=== PATIENT | female | born 1960 | race Caucasian/White ===

== ENCOUNTER 2016-12-26 07:10 | Observation (INO) | payer OTHER ==
[2016-12-26] MEDS ORDERED: NS 1,000 ML IV ONE (07:12)
[2016-12-26] MEDS ORDERED: MIDAZOLAM 2 MG/2 ML VIAL IVP ONE (07:12)
--- NOTE | 2016-12-26 07:35 | CPEKG ---
Heart Rate: 62 RR Interval: 968 P-R Interval: 160 QRSD Interval: 84 QT Interval: 408 QTC Interval: 415 P Colon: 38 QRS Colon: -3 T Wave Colon: 11 EKG Severity - NORMAL ECG - EKG Impression: SINUS RHYTHM Electronically Signed By: Ernesto Pittman 26-Dec-2016 08:40:27
[2016-12-26 07:56] LABS: ADD DIFF? NO; ADD MORPH? NO; ADD SCAN? NO; ATYPICAL LYMPHOCYTE FLAG 10 (0-99); FRAGMENT RBC FLAG 0 (0-99); HEMATOCRIT 44.9 % (38.0-47.0); LEFT SHIFT FLG 0 (0-99); LIPEMIA HEMOLYSIS FLAG 80 (0-99); MEAN CELL HEMOGLOBIN 29.6 pg (27.9-34.1); MEAN CELL HEMOGLOBIN CONCENTR. 33.4 g/dL (32.4-36.7); MEAN CELL VOLUME 88.7 fL (81.5-99.8); MEAN PLATELET VOLUME 10.8 fL (8.7-11.7); PLATELET CLUMPS FLAG 20 (0-99); PLATELET COUNT 241 10^3/uL (150-400); RED BLOOD CELL COUNT 5.06 10^6/uL (4.18-5.33); RED CELL DISTRIBUTION WIDTH 13.2 % (11.5-15.2)
[2016-12-26 08:04] LABS: ANION GAP 9 mEq/L (8-16); CALCIUM 9.6 mg/dL (8.5-10.4); CARBON DIOXIDE 27 mEq/l (22-31); CHLORIDE 105 mEq/L (97-110); CREATININE 0.8 mg/dL (0.6-1.0); GLOMERULAR FILTRATION RATE > 60; GLUCOSE 74 mg/dL (70-100); MAGNESIUM 2.1 mg/dL (1.6-2.3); POTASSIUM 4.4 mEq/L (3.5-5.2); SODIUM 141 mEq/L (134-144)
[2016-12-26 08:10] LABS: APTT 27.3 SEC (23.0-38.0); INR 1.01 (0.83-1.16); PROTIME(PATIENT) 13.2 SEC (12.0-15.0)
[2016-12-26] MEDS ORDERED: ISOPROTERENOL HCL 0.2 MG/ML 5ML AMP ONE (08:17)
[2016-12-26] MEDS ORDERED: LIDOCAINE 1% 30 ML SDV ONE (08:17)
[2016-12-26] MEDS ORDERED: HEPARIN 10,000 UNIT/10 ML MDV ONE (08:18)
[2016-12-26] MEDS ORDERED: BUPIVACAINE 0.5% 30 ML SDV ONE (08:18)
[2016-12-26] MEDS ORDERED: fentaNYL 100 MCG/2 ML INJ ONE ×2 (08:49→11:57)
[2016-12-26] MEDS ORDERED: PROPOFOL/EMULSION 500 MG/50 ML BOTTLE IV ONE (08:49)
[2016-12-26] MEDS ORDERED: ONDANSETRON 4 MG/2 ML VIAL ONE (08:50)
[2016-12-26] MEDS ORDERED: DEXAMETHASONE 4 MG/ML VIAL ONE (08:50)
[2016-12-26] MEDS ORDERED: ROCURONIUM 50 MG/5 ML VIAL ONE ×3 (08:50→09:38)
[2016-12-26] MEDS ORDERED: PHENYLEPHRINE HCL 100 MCG/ML SYR ONE (09:04)
[2016-12-26] MEDS ORDERED: PHENYLEPHRINE 10 MG/ML SDV ONE (10:24)
[2016-12-26] MEDS ORDERED: SUGAMMADEX SODIUM 200 MG/2 ML VIAL IVP ONE ×2 (11:01→11:12)
[2016-12-26] MEDS ORDERED: ATROPINE SULFATE 1 MG/10 ML SYR ONE (11:31)
[2016-12-26] MEDS ORDERED: ACETAMINOPHEN 325 MG TAB PO PRN (11:48)
[2016-12-26] MEDS ORDERED: ONDANSETRON 4 MG/2 ML VIAL IVP PRN (11:48)
--- NOTE | 2016-12-26 11:48 | EPPROC ---
Electrophysiology Procedure Note: ELECTROPHYSIOLOGIC STUDY AND CATHETER MEDIATED ABLATION OF FOCAL RIGHT ATRIAL TACHYCARDIA PROCEDURES PERFORMED: 1. EP evaluation with RA/RV/LA pace/record, with arrhythmia induction 2. EP evaluation with RA/RV pace record, insert/reposition catheter, with arrhythmia induction 3. Intracardiac catheter ablation, SVT arrhythmogenic focus 4. 3D mapping 5. Fluoroscopy INDICATION: Palpitations with chest pain Syncope Catheters and anesthesia: The patient arrived in the Electrophysiology Laboratory in the fasting state. The right clavicular region, right groin, and left groin area were prepped and draped in the usual sterile manner. Anesthesiologist Dr. Raf Castañeda administered general anesthesia. Appropriate non-invasive blood pressure, pulse oximetry and end-tidal CO2 monitoring was established. All catheters were placed percutaneously using the modified Seldinger technique , and advanced into position under fluoroscopic guidance. One #7 Hungarian deflectable octapolar electrode catheter was advanced to the His-bundle position via the left femoral vein (2mm spacing; except the proximal ring which was 25cm from the tip used for unipolar recordings). One #7 Hungarian deflectable catheter with 10 pairs of electrodes was placed via the left femoral vein into the coronary sinus. Programmed stimulation was performed from the right atrium, left atrium ( coronary sinus) and right ventricle. Parahisian pacing demonstrated all retrograde conduction over the AV node Heparin was administered to keep ACT > 200 seconds. Programmed stimulation of right atrium during infusion of isoproterenol 1-2 mcg/ min induced an atrial tachycardia CL 330-350 ms. AV dissociation was induced with ventricular overdrive pacing confirming atrial tachycardia. Patient was hypotensive in the systolic 60-70 mmHg range with atrial tachycardia. A #7 Hungarian mapping catheter was introduced into the right atrium and used for mapping AT . A 3D mapping system (Lanyrd) was used. A detailed 3D map of the right atrium and coronary sinus showed earliest atrial activation along the mid verenice terminalis. Pacing at this site did not show any phrenic stimulation. Earliest atrial activation began 25 ms before the onset of the P wave with a negative deflection in the unipolar electrogram. RF applications were delivered to this site. This accelerated and then terminated the tachycardia. Automaticity was seen at this site. Lesions were placed adjacent to RF#1 site. Programmed stimulation in the baseline state and during infusion of isoproterenol 1, 2 and 4 mcg/min post ablation was performed. Up to 5 beats of slower atrial The catheters were removed. The patient was transferred to the cardiovascular holding area in stable condition. Vascular access sheaths were removed in the holding area. There were no apparent complications. RESULTS A. Spontaneous Intervals: Pre ablation SCL 870 ms AH 75 ms HV 50 ms Post ablation SCL 690 ms AH 80 ms HV 45 ms B. Antegrade AV sander function (decremental pacing) Pre ablation FPERP 430 ms WBB CL 420 ms Post ablation FPERP 410 ms WBB CL 400 ms C. Retrograde AV sander function (decremental pacing) Pre ablation FPERP 600 ms WBB CL 590 ms CONCLUSIONS: 1. Focal right atrial tachycardia arising from mid verenice terminalis. 2. Successful ablation of focal atrial tachycardia. 3. No apparent complications. Patient Problems: Problems Problem Status Onset Near syncope Acute Palpitations Acute
--- NOTE | 2016-12-26 12:20 | CPEKG ---
Heart Rate: 91 RR Interval: 659 P-R Interval: 160 QRSD Interval: 82 QT Interval: 372 QTC Interval: 458 P [place]: 43 QRS [place]: 21 T Wave [place]: 21 EKG Severity - NORMAL ECG - EKG Impression: SINUS RHYTHM Electronically Signed By: Josue Colvin 26-Dec-2016 16:22:15
[2016-12-26] MEDS ORDERED: diphenhydrAMINE 25 MG CAP PO ONE (12:53)
[2016-12-26] MEDS ORDERED: diphenhydrAMINE 25 MG CAP PO PRN (13:03)
[2016-12-26 13:15] LABS: ANION GAP 9 mEq/L (8-16); CALCIUM 7.9 mg/dL (8.5-10.4); CARBON DIOXIDE 23 mEq/l (22-31); CHLORIDE 111 mEq/L (97-110); CREATININE 0.7 mg/dL (0.6-1.0); GLOMERULAR FILTRATION RATE > 60; GLUCOSE 111 mg/dL (70-100); MAGNESIUM 1.6 mg/dL (1.6-2.3); POTASSIUM 4.3 mEq/L (3.5-5.2); SODIUM 143 mEq/L (134-144)
[2016-12-26] MEDS ORDERED: VENLAFAXINE HCL 25 MG TAB PO SCH (21:00)
[2016-12-27 04:52] LABS: % IMMATURE GRANULYOCYTES 0.2 % (0.0-1.1); ABSOLUTE IMMATURE GRANULOCYTES 0.01 10^3/uL (0.00-0.10); ADD DIFF? NO; ADD MORPH? NO; ADD SCAN? NO; ATYPICAL LYMPHOCYTE FLAG 0 (0-99); FRAGMENT RBC FLAG 0 (0-99); HEMATOCRIT 37.6 % (38.0-47.0); HEMOGLOBIN 12.5 g/dL (12.6-16.3); LEFT SHIFT FLG 10 (0-99); LIPEMIA HEMOLYSIS FLAG 80 (0-99); MEAN CELL HEMOGLOBIN 29.9 pg (27.9-34.1); MEAN CELL HEMOGLOBIN CONCENTR. 33.2 g/dL (32.4-36.7); MEAN PLATELET VOLUME 11.1 fL (8.7-11.7); PLATELET CLUMPS FLAG 20 (0-99); PLATELET COUNT 206 10^3/uL (150-400); RED BLOOD CELL COUNT 4.18 10^6/uL (4.18-5.33); RED CELL DISTRIBUTION WIDTH 13.2 % (11.5-15.2)
[2016-12-27 05:07] LABS: ANION GAP 6 mEq/L (8-16); CALCIUM 8.8 mg/dL (8.5-10.4); CARBON DIOXIDE 27 mEq/l (22-31); CHLORIDE 107 mEq/L (97-110); CREATININE 0.8 mg/dL (0.6-1.0); GLOMERULAR FILTRATION RATE > 60; GLUCOSE 114 mg/dL (70-100); POTASSIUM 4.5 mEq/L (3.5-5.2); SODIUM 140 mEq/L (134-144)
[2016-12-27 05:13] LABS: INR 1.1 (0.83-1.16); PROTIME(PATIENT) 14.1 SEC (12.0-15.0)
[2016-12-27 05:18] LABS: CREATINE KINASE-MB FRACTION 1.38 ng/mL (0-3.19); TROPONIN I 0.111 ng/mL (0-0.034)
[2016-12-27 08:19] VITALS: BP 105/71; PULSE 84; RESP 15; TEMP 98.1; O2SAT 96
[2016-12-27] MEDS ORDERED: ASPIRIN 81 MG CHEWABLE TAB PO SCH (09:00)
--- NOTE | 2016-12-27 09:09 | CPEKG ---
Heart Rate: 86 RR Interval: 698 P-R Interval: 168 QRSD Interval: 84 QT Interval: 356 QTC Interval: 426 P [place]: 47 QRS [place]: 6 T Wave [place]: 21 EKG Severity - NORMAL ECG - EKG Impression: SINUS RHYTHM Electronically Signed By: Josue Colvin 27-Dec-2016 16:10:32
--- NOTE | 2016-12-27 10:18 | ECHO ---
[id number] + + [address] : : [place] [address] : : [phone] + + Adult Echocardiographic Report + ---------+ :Name: MAYE CHAN MStudy Date: 12/27/2016 07:28 AM : : Hospital Admission Number: [id number] Helga pool: 219: :: 1960 Gender: Female Height: 66 i n : :Age: 56 yrs Race: WH Weight: 153 lb : :Reason For Study: F/U post EP study : : BSA: 1.8 met ers2 : + ---------+ MMode/2D Measurements \T\ Calculations IVSd: 0.89 cm LVIDd: 4.1 cm FS: 35.1 % Ao root diam: LVPWd: 0.81 cm LVIDs: 2.7 cm EDV(Teich): 3.7 cm 75.4 ml LA dimension: ESV(Teich): 3.1 cm 26.4 ml EF(Teich): 64.9 % LVLd ap4: 7.3 cm SV(MOD-sp4): EDV(MOD-sp4): 34.0 ml 46.0 ml LVLs ap4: 5.8 cm ESV(MOD-sp4): 12.0 ml EF(MOD-sp4): 73.9 % Normal Measurement Values: + + :LVIDd (3.5-5.7cm) IVSd (0.6-1.1cm) LVPWd (0.6-1.1cm) Aortic Root (2.0-3.7cm)Left Atrium (1.5-4.0cm): :LV Vol(d) (76-115ml) LV Vol(s) (29-48ml) Ejec Fraction (50-65%)PV Jairo (0.6- 1.2m/s) TV Jairo (0.4-1.0m/s) : :MV E Jairo (0.8-1.0m/s)MV A Jairo (0.3-1.0m/s)LVOT Jairo (0.7-1.2m/s) Asc Ao Jairo ( 0.9-1.8m/s) : + + Doppler Measurements \T\ Calculations MV E max jairo: 69.6 cm/sec Ao V2 max: 111.3 cm/sec MV A max jairo: 59.2 cm/sec Ao max P.0 mmHg MV E/A: 1.2 Left Ventricle The left ventricle is normal in size. There is normal left ventricular wall thickness. Left ventricular systolic function is normal. Ejection Fraction = 70-75%. No regional wall motion abnormalities noted. Right Ventricle The right ventricle is normal in size and function. Atria The left atrial size is normal. Right atrial size is normal. The interatrial septum is intact with no evidence for an atrial septal defect. Mitral Valve The mitral valve is normal in structure and function. There is no evidence of mitral valve prolapse. There is no mitral valve stenosis. There is trace mitral regurgitation. Tricuspid Valve Normal tricuspid valve. There is trace tricuspid regurgitation. Aortic Valve The aortic valve is trileaflet. The aortic valve opens well. There is no aortic stenosis. There is no aortic insufficiency. Pulmonic Valve The pulmonic valve is normal in structure and function. There is no pulmonic valvular regurgitation. Great Vessels The aortic root is normal size. Pericardium/Pleural There is no pericardial effusion. There is a fat pad seen. Conclusion A complete two-dimensional transthoracic echocardiogram was performed (2D, M-mode, Doppler and color flow Doppler). Left ventricular systolic function is normal. Ejection Fraction = 70-75%. There is trace mitral regurgitation. There is trace tricuspid regurgitation. There is a fat pad seen. There is no pericardial effusion. Final Reading Physician: Luciana De Paz signed on 12/27/2016 10:16 AM Ordering Physician: Daniele Gary Performed By: Cynthia Crowe, GEENA
--- NOTE | 2016-12-27 13:21 | GDS ---
[f rep st] DISCHARGE SUMMARY ADMISSION DIAGNOSES: 1. Palpitations. 2. Near syncope. DISCHARGE DIAGNOSES: 1. Palpitations. 2. Status post electrophysiology study finding atrial tachycardia. 3. Successful ablation of focal atrial tachycardia. PROCEDURES DONE DURING HOSPITALIZATION: 1. Electrocardiogram. 2. Electrophysiology study. 3. Atrial tachycardia ablation. 4. Echocardiogram. BRIEF HISTORY: Please see H and P. The patient is a 56-year-old female, who has been reporting pal pitations with near syncopal events. She underwent Holter monitoring, which did not result anything . After discussing with Dr. Gary and being evaluated, it was felt that she should go under electroph ysiology study to see if she had any possible arrhythmias. HOSPITAL COURSE: The patient was admitted through CVC, prepped for procedure, and taken to electrop hysiology suite where electrophysiology study was performed. Dr. Gary was able to identify a right a trial foci tachycardia arising from the mid verenice terminals. He was able to successfully ablate th e foci, and there were no apparent complications. She was transferred back to the CVC, and ultimate ly to the PCU for overnight observation . There she remained in sinus rhythm, no arrhythmias noted. She denies any chest pain, shortness of breath, or lightheadedness. She has been walking the unit without any symptoms. PHYSICAL EXAMINATION: Done today. GENERAL APPEARANCE: Medium-built, well-groomed, femal e. She is alert, oriented to person, place, time, and situation. Appears to be in no acute distres s. CURRENT VITAL SIGNS: Blood pressure of 105/71, heart rate of 84, respirations 15, saturating 96 % on room air. Temperature 36.7 degrees Celsius. HEENT: Head is normocephalic. Lips and tongue ar e pink and moist with no signs of cyanosis. Conjunctivae pink. NECK: Trachea is midline, +2 carot id pulses bilateral. No auscultated bruits. No jugular vein distention. RESPIRATORY: Lungs clear to auscultation. No rhonchi, rales or wheezes. No accessory muscle use, no intercostal muscle ret raction noted. CARDIAC: Regular rate and regular rhythm, S1, S2. No S3, S4. No rubs, gallops or murmurs noted. ABDOMEN: Soft, nontender. Bowel sounds are 4 quadrants, no organomegaly, no palpab le masses. SKIN: [place], warm, dry. No cyanosis, no clubbing, no peripheral edema. VASCULAR: +2 c arotids bilateral, +2 radials bilateral, +1 posterior tibial and dorsal pedal pulses bilateral. [place] in sites, bilateral groin site, catheter insertion site, no redness, swelling, drainage, fever. No ecchymosis or hematoma. No bleeding. NEUROLOGIC: Cranial nerves 2-12 grossly intact. LABORATORY STUDIES: Drawn today show WBC of 6.15, hemoglobin 12.5, hematocrit of 37.6, platelet cou nt 206. INR 1.10. Sodium 140, potassium 4.5, chloride 107, CO2 of 27, BUN 12, creatinine 0.8, gluco se 114, calcium 8.8. CK 59, CK-MB fraction 1.38. Troponin 0.111. Electrophysiology and ablation as mentioned above. Electrocardiogram shows sinus rhythm, normal axi s. Echocardiogram done this morning shows LV systolic function is normal with EF of 70% to 75%, tra ce MR, trace TR, no pericardial effusion. DISCHARGE DISPOSITION: Patient will be discharged home in stable condition. She is under activity restrictions of no lifting more than 10 pounds for the next week, no strenuous activity for the next 2 weeks. DISCHARGE MEDICATIONS: Please see discharge medication reconciliation sheet. Note, the patient has been started on 81 mg of aspirin which she will take for 6 weeks, along with her regular home medic ations. DISCHARGE INSTRUCTIONS: Post ablation discharge instructions went over with the patient and her hus band, including monitoring for signs of infection, bleeding precautions, activity restrictions, medi cation compliance, DVT precautions (patient is to get up every 35-45 minutes while awake and move), and bathing precautions. The patient has a followup appointment made with Dr. Gary in 1 month. At t he time of discharge, the patient verbalized understanding of all discharge instructions. They have been told that if any problems or questions post discharge, they are to call our office or return t o the hospital. Total time spent on discharge greater than 30 minutes. /[id number]/MODL
== END 2016-12-27 11:57 | disposition home or self-care (01) ==
LOC: FCATH 07:10 → F2W 11:48
PROVIDERS: ADMIT Internal Medicine Cardiovascular Disease; ATTEND Internal Medicine Cardiovascular Disease
PROC: 4A023FZ Measurement of Cardiac Rhythm, Percutaneous Approach (ICD-10-PCS; principal; 2016-12-26)
PROC: 02K83ZZ Map Conduction Mechanism, Percutaneous Approach (ICD-10-PCS; principal; 2016-12-26)
PROC: 5A1223Z Performance of Cardiac Pacing, Continuous (ICD-10-PCS; principal; 2016-12-26)
PROC: 02563ZZ Destruction of Right Atrium, Percutaneous Approach (ICD-10-PCS; principal; 2016-12-26)
PROC: B2141ZZ Fluoroscopy of Right Heart using Low Osmolar Contrast (ICD-10-PCS; principal; 2016-12-26)
DX: I47.1 Supraventricular tachycardia (principal); R00.2 Palpitations
CPT/HCPCS: 93005; 93306; 93613; 93621; 93623; 93653; C1731; C1732; G0378; J0461; J1100; J1644; J2250; J2370; J2405; J2704; J3010

== ENCOUNTER → 2017-01-23 | Outpatient (CLI) | payer OTHER | LOC: BMCIMAGING 08:37 | DX: Z12.31 Encounter for screening mammogram for malignant neoplasm of breast (principal); Z85.3 Personal history of malignant neoplasm of breast; R92.8 Other abnormal and inconclusive findings on diagnostic imaging of breast | CPT/HCPCS: G0202 ==

== ENCOUNTER → 2017-02-01 | Outpatient (CLI) | payer OTHER | LOC: FIMAGING 09:01 | PROVIDERS: ATTEND Internal Medicine | DX: Z03.89 Encounter for observation for other suspected diseases and conditions ruled out (principal) | CPT/HCPCS: G0206 ==

== ENCOUNTER 2017-03-25 10:16 | Observation (INO) | payer OTHER ==
[2017-03-25] MEDS ORDERED: HYDROCODONE/APAP 5/325 TAB PO ONE (11:22)
[2017-03-25] MEDS ORDERED: ONDANSETRON 4 MG/2 ML VIAL IVP PRN (12:57)
[2017-03-25] MEDS ORDERED: HYDROmorphONE/DILAUDID 1 MG/ML SYR IVP PRN (12:57)
[2017-03-25 13:36] LABS: % IMMATURE GRANULYOCYTES 0.3 % (0.0-1.1); ABSOLUTE IMMATURE GRANULOCYTES 0.02 10^3/uL (0.00-0.10); ADD DIFF? NO; ADD MORPH? NO; ADD SCAN? NO; ATYPICAL LYMPHOCYTE FLAG 10 (0-99); FRAGMENT RBC FLAG 0 (0-99); HEMATOCRIT 44.7 % (38.0-47.0); HEMOGLOBIN 14.8 g/dL (12.6-16.3); LEFT SHIFT FLG 60 (0-99); LIPEMIA HEMOLYSIS FLAG 80 (0-99); MEAN CELL HEMOGLOBIN 29.4 pg (27.9-34.1); MEAN CELL HEMOGLOBIN CONCENTR. 33.1 g/dL (32.4-36.7); MEAN CELL VOLUME 88.7 fL (81.5-99.8); MEAN PLATELET VOLUME 10.6 fL (8.7-11.7); PLATELET CLUMPS FLAG 0 (0-99); PLATELET COUNT 246 10^3/uL (150-400); RED BLOOD CELL COUNT 5.04 10^6/uL (4.18-5.33); RED CELL DISTRIBUTION WIDTH 13.5 % (11.5-15.2)
--- NOTE | 2017-03-25 13:49 | GHP ---
[f rep st] HISTORY AND PHYSICAL DATE OF ADMISSION: 03/25/2017 HISTORY OF PRESENT ILLNESS: Patient is a very pleasant, 57-year-old female who tripped and fell off a [employer] reformer earlier today during exercise class. She did not have any preceding lightheaded ness, shortness of breath, or chest pain. She reports that it was a mechanical fall. She landed on another reformer, hitting her left chest, developed pain, and presented to the emergency department . She has no history of lung issues, no chronic pneumonia, nonsmoker, and reports that she is in ve ry good health overall. She denies any other injuries. REVIEW OF SYSTEMS: She had a negative 10 point review of systems. MEDICATIONS: Effexor 50 mg b.i.d. PAST MEDICAL HISTORY: Status post ablation for atrial tachycardia in December of 2016 Dr. Gary, hype rlipidemia, breast cancer. PAST SURGICAL HISTORY: , hysterectomy. 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 ALLERGIES: No known drug allergies. PHYSICAL EXAMINATION: GENERAL: Patient is a very pleasant female in no obvious distress but lying very still, accompanied by her . HEAD AND NECK: No signs of trauma. Full range of motion o f cervical spine without difficulty, nontender palpation over the cervical spine. CHEST: CTA bilat erally, moderate chest wall tenderness to palpation left anterior wall, symmetric expansion, no use of accessory muscles. HEART: Regular rhythm and rate. No tachycardia. ABDOMEN: Soft, nontender throughout all 4 quadrants. EXTREMITIES: Full range of motion of the right upper and bilateral low er extremities. Upon abduction of her left shoulder, she reports some left chest wall pain but bharat es shyam shoulder pain. RADIOLOGY: Chest x-ray demonstrates left 6th and 7th rib fractures with a small apical pneumothorax . IMPRESSION: 57-year-old, otherwise healthy female with 2 rib fractures and a small apical pneumotho rax. RECOMMENDATION: Pain control, rib fracture protocol, follow up chest x-ray in 4 hours to evaluate p neumothorax. I spoke with the patient at great length and emphasized the importance of ambulation a nd deep breathing exercises to prevent pneumonia. I discussed the case with Dr. Moreira, trauma surge on application packaging specialist. /[id number]/MODL
[2017-03-25 13:59] LABS: ANION GAP 10 mEq/L (8-16); CALCIUM 9.5 mg/dL (8.5-10.4); CARBON DIOXIDE 26 mEq/l (22-31); CHLORIDE 104 mEq/L (97-110); CREATININE 0.7 mg/dL (0.6-1.0); GLOMERULAR FILTRATION RATE > 60; GLUCOSE 69 mg/dL (70-100); POTASSIUM 4.3 mEq/L (3.5-5.2); SODIUM 140 mEq/L (134-144)
[2017-03-25 14:02] LABS: APTT 25.7 SEC (23.0-38.0); INR 1.01 (0.83-1.16); PROTIME(PATIENT) 13.2 SEC (12.0-15.0)
--- NOTE | 2017-03-25 15:25 | SOAPPROG ---
SOAP Progress Note Assessment/Plan: Assessment: 57-year-old female fell on her treadmill sustaining a 2 rib fractures on the left side with an associated small apical pneumothorax Admitted at this time for pain control and observation with follow-up chest x- ray NKA Meds are listed Review of systems negative on a 10 point evaluation Past history includes 2 C sections abdominal hysterectomy and cardiac ablation for SVT HEENT without evidence of trauma, nonicteric, no adenopathy Chest is slightly decreased breath sounds on the left with tenderness over the left ribs laterally Cor irregular rhythm Abdomen is soft nontender without organomegaly Extremities have full pulses full range of motion Left 6th and 7th rib fractures with tiny pneumothorax Plan: pain control and followup chest x-ray 03/25/17 15:21 Objective: Vital Signs Temp Pulse Resp BP Pulse Ox 36.4 C 79 20 123/74 H 98 03/25/17 13:30 03/25/17 13:30 03/25/17 13:30 03/25/17 13:30 03/25/17 13:30 Laboratory Results 03/25/17 13:25 03/25/17 13:25 PT 13.2 SEC (12.0-15.0) 03/25/17 13:25 INR 1.01 (0.83-1.16) 03/25/17 13:25 ICD10 Worksheet Patient Problems: Problems Problem Status Onset Near syncope Acute Palpitations Acute
[2017-03-25] MEDS ORDERED: HYDROCODONE/APAP 5/325 TAB ONE (15:46)
[2017-03-25] MEDS: HYDROCODONE/APAP 5/325 TAB PO PRN ×2 (15:48→21:16)
--- NOTE | 2017-03-25 15:55 | EDPHY ---
H & P Stated Complaint: chest pain, back pain shoulder pain arm pain all post fall in exercise this - Personal History Current Tetanus/Diphtheria Vaccine: Yes Current Tetanus Diphtheria and Acellular Pertussis (TDAP): Yes - Medical/Surgical History Hx Asthma: No Hx Chronic Respiratory Disease: No Hx Diabetes: No Hx Cardiac Disease: No Hx Renal Disease: No Hx Cirrhosis: No Hx Alcoholism: No Hx HIV/AIDS: No Hx Splenectomy or Spleen Trauma: No Other PMH: X 2. HYSTERECTOMY. HEPATITIS A. BR CA W/ RADIATION 2000. LOW SEROTONIN. Abasion last summer. BILATERAL SHOULDER BURSITIS - Social History Smoking Status: Former smoker HPI/ROS: Chief complaint: Left chest wall pain History of present illness: This is a 57-year-old female who presents to the emergency department for left chest wall pain. Patient was exercising when she fell striking her left chest wall against exercise equipment. Since then she has had pain. Some trouble breathing. Pain is worse with breathing and movement. She denies other associated signs or symptoms. No report of trauma to other parts of the body including the head, neck, back, abdomen, pelvis or extremities. Review of systems: A 10 point review of systems was obtained and other than described above was negative (Jordin Aguirre) - Physical Exam Exam: General Appearance: Alert, nontoxic Eyes: PERRLA Respiratory: Lungs clear to auscultation bilaterally Cardiac: Regular rate and rhythm. Gastrointestinal: Bowel sounds normal. Abdomen soft, nondistended, nontender. Neurological: Alert and oriented. Strength and sensation intact and symmetrical. Skin: No open wounds noted. Musculoskeletal: No trauma noted to the head or spine. Tenderness over the left lateral superior chest wall. Patient moving extremities well. (Jordin Aguirre) Constitutional: Initial Vital Signs Temperature (C) 36.5 C 03/25/17 10:33 Heart Rate 80 03/25/17 10:33 Respiratory Rate 16 03/25/17 10:33 Blood Pressure 120/75 03/25/17 10:33 O2 Sat (%) 98 03/25/17 10:33 O2 Delivery Mode Room Air Allergies/Adverse Reactions: fentanyl Allergy (Intermediate, Verified 12/27/16 07:16) Itching codeine [Codeine] Allergy (Mild, Verified 10/22/16 18:28) Rash morphine Allergy (Mild, Verified 10/22/16 18:28) nightmares Home Medications: Medication Instructions Recorded Venlafaxine HCl 50 mg PO BID 03/03/16 Multivitamins [Multivitamin (*)] 1 each PO DAILY 12/26/16 Medical Decision Making - Diagnostics Imaging: I viewed and interpreted images myself - Diagnostics Imaging Results: Imaging Impressions Ribs w/Chest X-Ray 03/25/17 11:23 Impression: 1. Nondisplaced fractures left sixth and seventh ribs, with associated small left apical pneumothorax. Results called to Jordin Aguirre PA-C, at the time of the interpretation. ED Course/Re-evaluation: Patient is discussed with my secondary supervising physician Dr. Madelyn Johnson. Patient presents to the emergency department for left chest wall pain after falling on it. This does appear to be a mechanical fall. Chest x-ray reveals multiple rib fractures and a small pneumothorax. She is admitted to Trauma Services for further care. Plan has been discussed with the patient voiced understanding and agreement with it. (Jordin Aguirre) Differential Diagnosis: Included but not limited to contusion, rib fractures, pneumo or hemothorax ( Jordin Aguirre) Other Provider: I have evaluated and participated in the management of this patient. My co- signature indicates that I have reviewed this chart and that I agree with the findings and the plan of care as documented. She lost her balance and fell while performing Pilates. She has persistent chest pain, worse with deep breath. This was a mechanical fall. On examination heart is regular rate rhythm, lungs are clear to auscultation. She has some tenderness with palpation of the mid left anterior thorax. No crepitus. Abdomen is soft and nontender. Chest x-ray shows fractures of left ribs 6 and 7 with a small apical pneumothorax. She is being admitted to the trauma surgery service where she will undergo repeat chest imaging and observation. She is hemodynamically stable. She is not hypoxic. (Madelyn Johnson) - Data Points Medications Given: Discontinued Medications Hydrocodone Bitart/Acetaminophen ([place] 5/325) 2 tab PO EDNOW ONE Stop: 03/25/17 11:23 Last Admin: 03/25/17 11:35 Dose: 2 tab Departure - Departure Disposition: [facility] Clinical Impression: Rib fracture Qualifiers: Encounter type: initial encounter Rib fracture type: multiple ribs Fracture type: closed Laterality: left Qualified Code(s): S22.42XA - Multiple fractures of ribs, left side, initial encounter for closed fracture Pneumothorax Qualifiers: Pneumothorax type: traumatic Encounter type: initial encounter Qualified Code(s ): S27.0XXA - Traumatic pneumothorax, initial encounter Condition: Fair
[2017-03-25] MEDS ORDERED: VENLAFAXINE XR 75 MG CAP PO SCH (18:00)
[2017-03-25] MEDS: KETOROLAC 15 MG/1 ML SDV IVP SCH ×2 (18:48→23:48)
--- NOTE | 2017-03-25 21:50 | SOAPPROG ---
SOAP Progress Note Assessment/Plan: Assessment: 57-year-old female fell on her treadmill sustaining a 2 rib fractures on the left side with an associated small apical pneumothorax Admitted at this time for pain control and observation with follow-up chest x- ray NKA Meds are listed Review of systems negative on a 10 point evaluation Past history includes 2 C sections abdominal hysterectomy and cardiac ablation for SVT HEENT without evidence of trauma, nonicteric, no adenopathy Chest is slightly decreased breath sounds on the left with tenderness over the left ribs laterally Cor irregular rhythm Abdomen is soft nontender without organomegaly Extremities have full pulses full range of motion Left 6th and 7th rib fractures with tiny pneumothorax Plan: pain control and followup chest x-ray 03/25/17 15:21 03/25/17 21:49 stable/ fu cxr stable/ possibly home in am Objective: Vital Signs Temp Pulse Resp BP Pulse Ox 36.9 C 76 18 106/60 93 03/25/17 20:00 03/25/17 20:00 03/25/17 20:00 03/25/17 20:00 03/25/17 20:00 Laboratory Results 03/25/17 13:25 03/25/17 13:25 PT 13.2 SEC (12.0-15.0) 03/25/17 13:25 INR 1.01 (0.83-1.16) 03/25/17 13:25 ICD10 Worksheet Patient Problems: Problems Problem Status Onset Pneumothorax Acute Rib fracture Acute Near syncope Acute Palpitations Acute
[2017-03-25] MEDS: diphenhydrAMINE 25 MG CAP PO PRN (23:48)
[2017-03-26] MEDS: HYDROCODONE/APAP 5/325 TAB PO PRN ×2 (01:30→05:23)
[2017-03-26] MEDS: diphenhydrAMINE 25 MG CAP PO PRN ×2 (01:33→11:52)
[2017-03-26] MEDS: KETOROLAC 15 MG/1 ML SDV IVP SCH (05:14)
[2017-03-26] MEDS ORDERED: VENLAFAXINE 50 MG PO SCH (09:00)
[2017-03-26] MEDS ORDERED: CYCLOBENZAPRINE 10 MG TAB PO PRN (09:00)
[2017-03-26] MEDS ORDERED: IBUPROFEN 600 MG TAB PO PRN (09:00)
--- NOTE | 2017-03-26 09:29 | TRAUMAPN ---
Assessment/Plan: HD#2 57yo F s/p fall c multiple L sided rib fx, pneumothorax - Neuro: pain controlled. Is itchy with [place]. Switching to Percocet, adding ibuprofen and Flexeril. - Pulm: BONNY, lungs clear, working with IS. CXR pending this AM. - CV: BP low, likely low at baseline. Not on any antiHTN meds. Will monitor - Uro: voiding, UOP appropriate - Heme: Hb stable, not on LMWH, ambulating, SCDs - ID: afebrile, WBC WNL - Dispo: pending CXR this AM. Likely dc today Subjective: Doing well, no complaints. ISing >1500 Objective: Vital Signs Temp Pulse Resp BP Pulse Ox 37.0 C 81 16 82/46 L 91 L 03/26/17 08:41 03/26/17 08:41 03/26/17 08:41 03/26/17 08:41 03/26/17 08:41 Laboratory Results 03/25/17 13:25 03/25/17 13:25 03/25/17 03/26/17 03/27/17 05:59 05:59 05:59 Intake Total 350 Balance 350 PT 13.2 SEC (12.0-15.0) 03/25/17 13:25 INR 1.01 (0.83-1.16) 03/25/17 13:25
[2017-03-26] MEDS: OXYCODONE/APAP 5/325 TAB PO PRN ×2 (09:31→13:40)
[2017-03-26 16:17] VITALS: BP 110/59; PULSE 68; RESP 14; TEMP 98.3; O2SAT 95
--- NOTE | 2017-03-27 06:30 | GDS ---
[f rep st] DISCHARGE SUMMARY DISCHARGE DIAGNOSES: 1. Traumatic rib fractures on the left side. 2. Left apical pneumothorax. 3. Underlying pulmonary contusion of the left lung. HOSPITAL COURSE: The patient was admitted from the emergency department on the on the afternoon of the . The patient sustained a fall without loss of consciousness and had the above injuries. S he was subsequently managed on the general medical floor. Her pain was well-tolerated on oral narco tics. She did discharge home on oxygen 2 L continuous at all times. On the day of discharge, she d id have a tiny, stable, small apical pneumothorax on the left side for which she will repeat imaging in 2 days. The patient was subsequently discharged home with her in stable condition. FOLLOWUP: She will follow up with me in 2 days. She will have repeat imaging to ensure stability a nd a resolution of her tiny left apical pneumothorax. DISPOSITION: Home. /[id number]/MODL
== END 2017-03-26 18:02 | disposition home or self-care (01) ==
LOC: F3E 16:11
PROVIDERS: ADMIT Surgery; ATTEND Surgery
DX: S22.42XA Multiple fractures of ribs, left side, initial encounter for closed fracture (principal); S27.0XXA Traumatic pneumothorax, initial encounter; E78.5 Hyperlipidemia, unspecified; W01.198A Fall on same level from slipping, tripping and stumbling with subsequent striking against other object, initial encounter; Y92.838 Other recreation area as the place of occurrence of the external cause; Z87.891 Personal history of nicotine dependence; Z85.3 Personal history of malignant neoplasm of breast
CPT/HCPCS: 71010; 71020; 71101; G0378; J1885

== ENCOUNTER → 2017-03-29 | Outpatient (CLI) | payer OTHER | LOC: FIMAGING 09:49 | PROVIDERS: ATTEND Surgery | DX: S27.0XXD Traumatic pneumothorax, subsequent encounter (principal); J98.11 Atelectasis; J90 Pleural effusion, not elsewhere classified ==

== ENCOUNTER 2017-04-04 10:28 | Inpatient (IN) | payer OTHER ==
[2017-04-04] MEDS ORDERED: ONDANSETRON 4 MG/2 ML VIAL IVP ONE (11:02)
--- NOTE | 2017-04-04 11:02 | EDPHY ---
H & P Stated Complaint: fall 1 wk ago collapsed lung Now DWYER w/ N/V Source: Patient - Personal History Current Tetanus/Diphtheria Vaccine: Yes Current Tetanus Diphtheria and Acellular Pertussis (TDAP): Yes - Medical/Surgical History Hx Asthma: No Hx Chronic Respiratory Disease: No Hx Diabetes: No Hx Cardiac Disease: No Hx Renal Disease: No Hx Cirrhosis: No Hx Alcoholism: No Hx HIV/AIDS: No Hx Splenectomy or Spleen Trauma: No Other PMH: X 2. HYSTERECTOMY. HEPATITIS A. BR CA W/ RADIATION 2000. LOW SEROTONIN. Abasion last summer. BILATERAL SHOULDER BURSITIS - Social History Smoking Status: Former smoker Time Seen by Provider: 04/04/17 10:47 HPI/ROS: CHIEF COMPLAINT: Shortness of breath, headache HISTORY OF PRESENT ILLNESS: This is a 57-year-old female presenting to the emergency department complaining of shortness of breath over the past few days with headache. Patient was seen on 03/25/2007 for rib fractures and no left pneumothorax after falling against gym equipment. Patient was discharged sent home on 2 L home oxygen, stated yesterday morning patient felt like she was increased breath increased to 3 L O2 via nasal cannula. Has been also reports that patient has been having some bloating and constipation more likely due to the [place] that she has been on. Last night patient took 3 doses of Mag citrate along with MiraLax complaining of some diarrhea this morning with nausea and headache. REVIEW OF SYSTEMS: Constitutional: No fever, no chills. Eyes: Light sensitivity no blurred vision ENT: No sore throat. Cardiovascular: No chest pain, no palpitations. Respiratory: shortness of breath. Gastrointestinal: No abdominal pain, no vomiting. Nausea with this 1-2 episodes of diarrhea this morning Genitourinary: No hematuria. Musculoskeletal: No back pain. Left-sided rib pain Skin: No rashes. Neurological: headache. (Shalonda Herr) Constitutional: Initial Vital Signs Temperature (C) 37.2 C 04/04/17 10:31 Heart Rate 91 04/04/17 10:31 Respiratory Rate 16 04/04/17 10:31 Blood Pressure 86/62 L 04/04/17 10:31 O2 Sat (%) 95 04/04/17 10:31 O2 Delivery Mode Room Air Allergies/Adverse Reactions: fentanyl Allergy (Intermediate, Verified 12/27/16 07:16) Itching codeine [Codeine] Allergy (Mild, Verified 10/22/16 18:28) Rash morphine Allergy (Mild, Verified 10/22/16 18:28) nightmares Home Medications: Medication Instructions Recorded Venlafaxine HCl 50 mg PO BID 03/03/16 Multivitamins [Multivitamin (*)] 1 each PO DAILY 12/26/16 Cyclobenzaprine [Flexeril 10 MG 10 mg PO TID PRN #20 tab 03/26/17 (*)] Hydrocodone/APAP 5/325 [[place] 1 - 2 tab PO Q4H PRN #30 tab 03/26/17 5/325 (*)] Medical Decision Making ED Course/Re-evaluation: Discussed the plan of care the patient: CBC, CMP, chest x-ray, PO Tylenol 1250: Spoke with Dr. Moreira, patient be admitted for worsening pneumothorax pleural effusion. Dr. Moreira will be down to place chest tube. Discussed with patient results of x-ray, also discussed admit to hospital 1330: Dr. Moreira patient bedside, patient being prepped for chest. No apparent distress, patient well-appearing. (Shalonda Herr) Differential Diagnosis: Other differential diagnosis considered but not limited to PE, sepsis, and hemopneumothorax (Shalonda Herr) Other Provider: I evaluated and participated in the management of the patient. The patient presents to the ED with increasing dyspnea and hypoxemia in the setting of a recent fall with multiple rib injuries. I reviewed the patient's chest x-ray and vital signs. Her chest x-ray does demonstrate the accumulation of a large left hemothorax. Consultation was made with Dr. William Moreira from General Surgery placed a a chest tube in the emergency department with 1 L of drainage from the left hemothorax. Patient will be admitted to the hospital under the care of Dr. Moreira. My co-signature indicates that I have reviewed this chart and I agree with the findings and plan of care as documented. (Maximilian Allen) - Data Points Laboratory Results: Laboratory Results 04/04/17 10:50 04/04/17 10:50 Medications Given: Discontinued Medications Acetaminophen (Tylenol) 1,000 mg PO EDNOW ONE Stop: 04/04/17 11:43 Last Admin: 04/04/17 12:10 Dose: 1,000 mg Fentanyl (Sublimaze) 100 mcg IVP ONCE ONE Stop: 04/04/17 13:48 Last Admin: 04/04/17 13:48 Dose: 100 mcg Sodium Chloride (Ns) 1,000 mls @ 0 mls/hr IV ONCE ONE PRN Reason: Wide Open Stop: 04/04/17 11:16 Last Admin: 04/04/17 11:15 Dose: 1,000 mls Cefazolin Sodium/Dextrose (Ancef 1 Gm (Premix)) 50 mls @ 200 mls/hr IV Q8 JOSE PRN Reason: Protocol Stop: 04/05/17 06:14 Last Admin: 04/05/17 05:40 Dose: 50 mls Ketorolac Tromethamine (Toradol) 15 mg IVP ONCE ONE Stop: 04/04/17 14:10 Last Admin: 04/04/17 14:09 Dose: 15 mg Midazolam HCl (Versed) 2 mg IVP ONCE ONE Stop: 04/04/17 13:48 Last Admin: 04/04/17 13:48 Dose: 2 mg Ondansetron HCl (Zofran) 4 mg IVP EDNOW ONE Stop: 04/04/17 11:03 Last Admin: 04/04/17 11:15 Dose: 4 mg Departure - Departure Disposition: [facility] Inpatient Acute Clinical Impression: Pleural effusion Pneumonia Qualifiers: Pneumonia type: due to unspecified organism Laterality: left Lung location: lower lobe of lung Qualified Code(s): J18.1 - Lobar pneumonia, unspecified organism Condition: Fair
[2017-04-04] MEDS ORDERED: NS 1,000 ML IV ONE (11:15)
[2017-04-04] MEDS ORDERED: ACETAMINOPHEN 500 MG TAB PO ONE (11:42)
[2017-04-04 11:45] LABS: % IMMATURE GRANULYOCYTES 0.3 % (0.0-1.1); ABSOLUTE IMMATURE GRANULOCYTES 0.02 10^3/uL (0.00-0.10); ADD DIFF? NO; ADD MORPH? NO; ADD SCAN? NO; ATYPICAL LYMPHOCYTE FLAG 20 (0-99); FRAGMENT RBC FLAG 0 (0-99); HEMATOCRIT 40.6 % (38.0-47.0); HEMOGLOBIN 13.9 g/dL (12.6-16.3); LEFT SHIFT FLG 30 (0-99); LIPEMIA HEMOLYSIS FLAG 90 (0-99); MEAN CELL HEMOGLOBIN 29.6 pg (27.9-34.1); MEAN CELL HEMOGLOBIN CONCENTR. 34.2 g/dL (32.4-36.7); MEAN CELL VOLUME 86.4 fL (81.5-99.8); MEAN PLATELET VOLUME 9.9 fL (8.7-11.7); PLATELET CLUMPS FLAG 0 (0-99); PLATELET COUNT 311 10^3/uL (150-400); RED CELL DISTRIBUTION WIDTH 12.6 % (11.5-15.2)
[2017-04-04 11:50] LABS: ANION GAP 10 mEq/L (8-16); CALCIUM 9.6 mg/dL (8.5-10.4); CARBON DIOXIDE 25 mEq/l (22-31); CHLORIDE 106 mEq/L (97-110); CREATININE 0.7 mg/dL (0.6-1.0); GLOMERULAR FILTRATION RATE > 60; GLUCOSE 93 mg/dL (70-100); POTASSIUM 3.8 mEq/L (3.5-5.2); SODIUM 141 mEq/L (134-144)
[2017-04-04] MEDS ORDERED: ONDANSETRON 4 MG/2 ML VIAL IVP PRN (13:23)
[2017-04-04] MEDS ORDERED: fentaNYL 100 MCG/2 ML INJ ONE ×2 (13:26→13:41)
[2017-04-04] MEDS ORDERED: MIDAZOLAM 2 MG/2 ML VIAL ONE ×2 (13:26→13:41)
[2017-04-04] MEDS ORDERED: D5W 1/2 NS W/ 20 KCl/L 1,000 ML IV SCH (13:30)
[2017-04-04] MEDS ORDERED: fentaNYL 100 MCG/2 ML INJ IVP ONE (13:47)
[2017-04-04] MEDS ORDERED: MIDAZOLAM 2 MG/2 ML VIAL IVP ONE (13:47)
--- NOTE | 2017-04-04 13:48 | GHP ---
[f rep st] PREOP HISTORY AND PHYSICAL DATE OF ADMISSION: 04/04/2017 HISTORY OF PRESENT ILLNESS: A 57-year-old female who was admitted from the emergency room with a le ft hemothorax. She had a fall and multiple rib fractures on the left side approximately 10 days ago and has been doing fine at home, but suddenly developed increasing pain and shortness of breath. I n the ER, chest x-ray reveals an enlarging left pleural effusion, presumably hemothorax, and multipl e rib fractures. She was admitted at this time for chest tube placement and evacuation of hemothora x. REVIEW OF SYSTEMS: Reveals no major medical problems on a 10 point full review of systems, other th an those in the present illness or past history. She is an ex-smoker. PAST MEDICAL HISTORY: C-sections, a hysterectomy. She had hepatitis before, a history of breast ca ncer with radiation therapy in 2000, and some shoulder bursitis. She has had atrial ablation for SV T. ALLERGIES: Fentanyl, codeine, morphine. MEDICATIONS: Flexeril, [place], Motrin, multivitamins, and venlafaxine. PHYSICAL EXAMINATION: GENERAL: Reveals an alert 57-year-old female, in no acute distress. HEAD AN D NECK: Benign without icterus or adenopathy, thyromegaly. She had no oral lesions. Her pupils ar e normal. CHEST: Reveals blunted decreased breath sounds in the left base, palpable tender rib fra ctures on the left. CARDIAC: A regular rhythm. ABDOMEN: Soft and nontender. EXTREMITIES: Benig n. Full range of motion. Full pulses. NEURO: Physiologic. GENERAL: She is a healthy, comfortab le 57-year-old female, in no acute distress. She is afebrile. IMPRESSION: Multiple left rib fractures, now with a hemothorax. PLANS: Admit for chest tube placement and management. Risks and options have been fully discussed and she wishes to proceed. /[id number]/MODL
[2017-04-04] MEDS ORDERED: KETOROLAC 15 MG/1 ML SDV ONE (13:53)
[2017-04-04] MEDS ORDERED: CEFAZOLIN 1 GM/DEXTROSE/50 ML BAG IV ONE (13:54)
[2017-04-04] MEDS ORDERED: KETOROLAC 15 MG/1 ML SDV IVP ONE (14:09)
[2017-04-04] MEDS: HYDROmorphONE/DILAUDID 1 MG/ML SYR IVP PRN ×2 (15:32→21:25)
[2017-04-04] MEDS: OXYCODONE/APAP 5/325 TAB PO PRN ×3 (15:33→21:32)
[2017-04-04] MEDS: KETOROLAC 15 MG/1 ML SDV IVP SCH (18:04)
--- NOTE | 2017-04-04 20:48 | POSTOPPROG ---
Post Op Note Date of Operation: 04/04/17 Surgeon: Colten Moreira Anesthesia: IV Sedation Pre-op Diagnosis: LEFT HEMOTHORAX Post-op Diagnosis: SAME Indication: ENLARGING HEMOTHORAX Procedure: LEFT TUBE THORACOSTOMY WITH THE IV SEDATION Findings: ALMOST 1 L OF BLOODY FLUID IN THE LEFT CHEST WITH GOOD EXPANSION OF THE WALLACE Inf/Abcess present in the surg proc area at time of surgery?: No Depth: Organ Space EBL: Minimal Complications: NONE Drains: Constavac
[2017-04-05] MEDS: KETOROLAC 15 MG/1 ML SDV IVP SCH ×4 (00:38→18:10)
[2017-04-05] MEDS: OXYCODONE/APAP 5/325 TAB PO PRN ×5 (00:39→21:50)
[2017-04-05 08:33] LABS: % IMMATURE GRANULYOCYTES 0.4 % (0.0-1.1); ABSOLUTE IMMATURE GRANULOCYTES 0.02 10^3/uL (0.00-0.10); ADD DIFF? NO; ADD MORPH? NO; ADD SCAN? NO; ATYPICAL LYMPHOCYTE FLAG 20 (0-99); FRAGMENT RBC FLAG 0 (0-99); HEMATOCRIT 36.9 % (38.0-47.0); HEMOGLOBIN 12.1 g/dL (12.6-16.3); LEFT SHIFT FLG 10 (0-99); LIPEMIA HEMOLYSIS FLAG 80 (0-99); MEAN CELL HEMOGLOBIN 29.4 pg (27.9-34.1); MEAN CELL HEMOGLOBIN CONCENTR. 32.8 g/dL (32.4-36.7); MEAN CELL VOLUME 89.6 fL (81.5-99.8); MEAN PLATELET VOLUME 9.6 fL (8.7-11.7); PLATELET CLUMPS FLAG 0 (0-99); PLATELET COUNT 274 10^3/uL (150-400); RED BLOOD CELL COUNT 4.12 10^6/uL (4.18-5.33); RED CELL DISTRIBUTION WIDTH 12.8 % (11.5-15.2)
[2017-04-05] MEDS ORDERED: LACTULOSE 20 GM/30 ML UDCUP PO PRN (10:50)
[2017-04-05] MEDS ORDERED: MAGNESIUM HYDROXIDE 30 ML UDCUP PO PRN (10:50)
[2017-04-05] MEDS ORDERED: POLYETHYLENE GLYCOL 3350 17 GM PKT PO PRN (10:50)
[2017-04-05] MEDS ORDERED: BISACODYL 10 MG SUPP PR PRN (10:50)
[2017-04-05] MEDS: SENNOSIDES/DOCUSATE SODIUM TAB PO SCH ×2 (11:08→20:23)
--- NOTE | 2017-04-05 12:06 | GPN ---
[f rep st] PROCEDURE NOTE DATE OF PROCEDURE: 04/04/2017 NAME OF PROCEDURE: Left tube thoracostomy. INDICATION: The patient has an enlarging hemothorax on the left. FINDINGS: Patient was found to have nearly a liter of old bloody fluid in the left chest. DESCRIPTION OF PROCEDURE: The patient received IV sedation and monitored anesthesia care with verse d and fentanyl. She was prepped and draped in the usual sterile fashion, using 1% Xylocaine for loc al infiltration. A short incision was made in the midaxillary line in the 7th intercostal space. D issection was extended up over the rib, through the intercostal space and the pleural space was ente red, evacuating a large amount of old blood. A #28 chest tube was inserted without difficulty, and secured to the skin with 0 silk sutures. It was attached to a Pleur-Evac drainage system. Evacuate d over 800 cc of bloody fluid, plus what was already spilled on floor and the table. Wound was dres sed. She tolerated the procedure well. There were no complications. Chest x-ray shows good expansion of the lung with no problems. She was taken to the recovery room in good condition. /[id number]/MODL
--- NOTE | 2017-04-05 19:39 | SOAPPROG ---
SOAP Progress Note Assessment/Plan: Assessment: COMFORTABLE STATUS POST LEFT CHEST TUBE DRAINAGE / CHEST X-RAY WILL EXPANDED/ DRAINAGE THE DECREASED TODAY / NO AIR LEAK Plan: HOPEFULLY HOME IS WE CAN 04/05/17 19:39 Objective: Vital Signs Temp Pulse Resp BP Pulse Ox 36.5 C 80 20 120/73 95 04/05/17 15:18 04/05/17 15:18 04/05/17 15:18 04/05/17 15:18 04/05/17 15:18 Laboratory Results 04/05/17 08:25 04/04/17 04/05/17 04/06/17 05:59 05:59 05:59 Intake Total 800 400 Output Total 1800 520 Balance -1000 -120 ICD10 Worksheet Patient Problems: Problems Problem Status Onset Pleural effusion Acute Pneumonia Acute Near syncope Acute Palpitations Acute Pneumothorax Acute Rib fracture Acute
[2017-04-06] MEDS: KETOROLAC 15 MG/1 ML SDV IVP SCH ×5 (06:44→23:28)
--- NOTE | 2017-04-06 07:42 | SOAPPROG ---
SOAP Progress Note Assessment/Plan: Assessment: 57 year old s/p fall with multiple left sided rib fractures. Readmitted to Dr. Moreira for hemothorax. chest tube placed Will monitor chest tube output Chest x ray much improved today - still with small pneumo Chest tube to water seal. Will see chest x ray tomorrow If output <150 cc in 24 hours and no pneumo on chest x ray, will pull Can participate in PT S: Feeling better today Plan: 04/06/17 07:42 04/06/17 13:11 Objective: Vital Signs Temp Pulse Resp BP Pulse Ox 36.4 C 75 18 122/85 H 93 04/06/17 02:58 04/06/17 02:58 04/06/17 02:58 04/06/17 02:58 04/06/17 02:58 Laboratory Results 04/05/17 08:25 04/05/17 04/06/17 04/07/17 05:59 05:59 05:59 Intake Total 800 770 Output Total 1800 610 Balance -1000 160 Physical Exam - Physical Exam General Appearance: WD/WN, alert, no apparent distress EENT: PERRL/EOMI, normal ENT inspection, No scleral icterus (R), No scleral icterus (L) Respiratory: other (decreased left lower, good effort. no air leak .) Cardiac/Chest: regular rate, rhythm Back: Normal inspection Skin: normal color, warm/dry Extremities: normal range of motion, non-tender Neuro/Psych: no motor/sensory deficits, alert, normal mood/affect (I reviewed the films with the patient) ICD10 Worksheet Patient Problems: Problems Problem Status Onset Pleural effusion Acute Pneumonia Acute Near syncope Acute Palpitations Acute Pneumothorax Acute Rib fracture Acute
[2017-04-06] MEDS: OXYCODONE/APAP 5/325 TAB PO PRN ×4 (08:35→23:30)
[2017-04-06] MEDS: SENNOSIDES/DOCUSATE SODIUM TAB PO SCH ×2 (08:36→19:51)
[2017-04-06] MEDS ORDERED: CYCLOBENZAPRINE 10 MG TAB PO PRN (13:57)
[2017-04-06] MEDS: VENLAFAXINE HCL 25 MG TAB PO SCH (19:52)
[2017-04-06] MEDS ORDERED: VENLAFAXINE HCL 50 MG PO SCH (21:00)
[2017-04-07] MEDS: KETOROLAC 15 MG/1 ML SDV IVP SCH ×4 (06:14→23:21)
[2017-04-07] MEDS: OXYCODONE/APAP 5/325 TAB PO PRN ×2 (06:18→14:38)
[2017-04-07] MEDS: VENLAFAXINE HCL 25 MG TAB PO SCH ×2 (08:25→20:29)
[2017-04-07] MEDS: SENNOSIDES/DOCUSATE SODIUM TAB PO SCH ×2 (08:25→20:28)
--- NOTE | 2017-04-07 10:50 | SOAPPROG ---
SOAP Progress Note Assessment/Plan: Assessment: 57 year old s/p fall with multiple left sided rib fractures. Readmitted to Dr. Moreira for hemothorax. chest tube placed Will monitor chest tube output - too high to remove today and still has small pneumo (both improved from yesterday) Scapula fx identified on x ray today - explains her pain. Asked Dr. Green to see her. Advised patient likely non operative, sling for comfort Can participate in PT S: Feeling better today Plan: 04/06/17 07:42 04/06/17 13:11 04/07/17 10:47 Objective: Vital Signs Temp Pulse Resp BP Pulse Ox 36.8 C 82 20 116/70 89 L 04/07/17 07:27 04/07/17 07:27 04/07/17 07:27 04/07/17 07:27 04/07/17 07:27 Laboratory Results 04/05/17 08:25 04/06/17 04/07/17 04/08/17 05:59 05:59 05:59 Intake Total 770 820 Output Total 610 230 Balance 160 590 Physical Exam - Physical Exam General Appearance: WD/WN, alert, no apparent distress EENT: PERRL/EOMI, normal ENT inspection, No scleral icterus (R), No scleral icterus (L) Respiratory: other (decreased at bases but improved from yesterday, good inspiratory effort, chest tube does not have air leak. ) Cardiac/Chest: regular rate, rhythm, other (tender to palpation over left scapula. No ecchymosis. ) Skin: normal color, warm/dry Extremities: other (limited left arm due to pain but otherwise moves very well) Neuro/Psych: no motor/sensory deficits, normal mood/affect, oriented x 3 ICD10 Worksheet Patient Problems: Problems Problem Status Onset Pleural effusion Acute Pneumonia Acute Near syncope Acute Palpitations Acute Pneumothorax Acute Rib fracture Acute
[2017-04-07] MEDS: HYDROCORTISONE ACETATE 25 MG SUPP PR PRN ×2 (14:03→23:31)
--- NOTE | 2017-04-07 14:21 | GCON ---
[f rep st] CONSULTATION ORTHOPEDIC CONSULT NOTE DATE OF CONSULTATION: 04/07/2017 CHIEF COMPLAINT: Left scapular fracture. HISTORY OF PRESENT ILLNESS: This is a 57-year-old female who sustained multiple left rib fractures and was in the ER about 10 days ago. She then came back to the ER with a hemopneumothorax and was a dmitted. On one of her chest x-rays, there was concern for a nondisplaced left scapular fracture. She has had pain in the left scapula, increasing in the last few days. PAST MEDICAL HISTORY: , hysterectomy, had hepatitis in the past, history of breast cancer, as well as shoulder bursitis, atrial fibrillation, SVT. REVIEW OF SYSTEMS: A full 10-point review of systems was performed and was otherwise negative. ALLERGIES: Fentanyl, codeine, morphine. MEDICATIONS: Flexeril, [place], Motrin, multivitamins, venlafaxine. FAMILY HISTORY: Reviewed and noncontributory. PHYSICAL EXAM: VITAL SIGNS: Stable. GENERAL: She is alert, oriented, appropriate female in no di stress. HEENT: Head is atraumatic. Her eyes are equal and reactive. NECK: Supple. CHEST: Show s a symmetric chest rise as she breathes. CARDIAC: Regular rate and rhythm. ABDOMEN: Soft. EXTR EMITIES: Right upper extremity, she moves well without problems with full strength in her shoulder, hand, and wrist. Good range of motion. Left upper extremity, she has tenderness over the scapula. She can abduct her arm to 120 degrees. Forward flexion to 120 degrees. She has 4/5 supraspinatus pain and positive empty can sign. She has good internal and external rotation. Strength, she has positive impingement sign. She has good elbow and wrist strength. She is neurovascularly intact in that hand. Lower extremities show full range of motion, full strength, neurovascularly intact. IMPRESSION: Left scapular fracture. PLAN: I will order a full shoulder series of x-rays to further evaluate the scapular fracture. Thi s appears nondisplaced. If there is any displacement seen on the x-rays, we may need a CT scan to f urther characterize this. At this point, however, I would give her a sling for comfort. She does n ot need to use this if she does not desire. She can be weightbearing as tolerated on this as this a ppears quite stable. I will plan on seeing her in the office in 2 weeks. She was given my card. /[id number]/MODL
[2017-04-08] MEDS ORDERED: OXYCODONE/APAP 5/325 TAB PO SCH
[2017-04-08] MEDS: OXYCODONE/APAP 5/325 TAB PO PRN ×3 (05:41→12:10)
[2017-04-08] MEDS: KETOROLAC 15 MG/1 ML SDV IVP SCH ×3 (05:43→20:02)
[2017-04-08] MEDS: SENNOSIDES/DOCUSATE SODIUM TAB PO SCH (08:42)
[2017-04-08] MEDS: VENLAFAXINE HCL 25 MG TAB PO SCH (08:43)
[2017-04-08 15:30] VITALS: BP 120/76; PULSE 83; RESP 16; TEMP 97.9
[2017-04-08 15:31] VITALS: O2SAT 93
--- NOTE | 2017-04-08 17:02 | SOAPPROG ---
SOAP Progress Note Assessment/Plan: Assessment: 57 year old s/p fall with multiple left sided rib fractures. Readmitted to Dr. Moreira for hemothorax. chest tube placed Chest tube removed 04/08/[address] Green seeing her for possible scapula fx. Not definitive on x ray. Pain improved. Pending cxr, can dc home Can participate in PT S: Feeling better today sitting in bed, chest tube removed and dressing placed. No increased work of breathing. regular rate Plan: 04/06/17 07:42 04/06/17 13:11 04/07/17 10:47 04/08/17 17:01 04/08/17 17:02 Objective: Vital Signs Temp Pulse Resp BP Pulse Ox 36.6 C 83 16 120/76 93 04/08/17 15:27 04/08/17 15:27 04/08/17 15:27 04/08/17 15:27 04/08/17 15:27 Laboratory Results 04/05/17 08:25 04/07/17 04/08/17 04/09/17 05:59 05:59 05:59 Intake Total 820 1430 Output Total 230 130 Balance 590 1300 ICD10 Worksheet Patient Problems: Problems Problem Status Onset Pleural effusion Acute Pneumonia Acute Near syncope Acute Palpitations Acute Pneumothorax Acute Rib fracture Acute
== END 2017-04-08 19:27 | disposition home or self-care (01) | DRG 165 ==
LOC: F2W 14:15
PROVIDERS: ADMIT Surgery; ATTEND Surgery
PROC: 0B9L00Z Drainage of Left Lung with Drainage Device, Open Approach (ICD-10-PCS; principal; 2017-04-04)
DX: S27.1XXA Traumatic hemothorax, initial encounter (principal); S42.102A Fracture of unspecified part of scapula, left shoulder, initial encounter for closed fracture; S22.42XD Multiple fractures of ribs, left side, subsequent encounter for fracture with routine healing; W01.198D Fall on same level from slipping, tripping and stumbling with subsequent striking against other object, subsequent encounter; Z85.3 Personal history of malignant neoplasm of breast; Z87.891 Personal history of nicotine dependence
CPT/HCPCS: 96374; 97161-GP; J0690; J1170; J1885; J2250; J2405; J3010

== ENCOUNTER → 2017-04-18 | Outpatient (CLI) | payer OTHER | LOC: FIMAGING 15:16 | PROVIDERS: ATTEND Surgery | DX: S22.42XD Multiple fractures of ribs, left side, subsequent encounter for fracture with routine healing (principal) ==

== ENCOUNTER → 2018-03-11 | Outpatient (CLI) | payer OTHER | LOC: BMCIMAGING 14:59 | PROVIDERS: ATTEND Internal Medicine | DX: Z12.31 Encounter for screening mammogram for malignant neoplasm of breast (principal); Z85.3 Personal history of malignant neoplasm of breast ==

== ENCOUNTER → 2019-03-22 | Outpatient (CLI) | payer OTHER | LOC: FIMAGING 13:31 | PROVIDERS: ATTEND Emergency Medicine | DX: R10.31 Right lower quadrant pain (principal); K76.89 Other specified diseases of liver ==